=== PATIENT | female | born 1970 | race African-American/Black ===

== ENCOUNTER 2019-02-23 22:16 | Emergency (ER) | payer MEDICAID ==
[~2019-02-23] VITALS: Ht 170.2 cm; Wt 104.0 kg
[2019-02-23] MEDS ORDERED: MORPHINE SULFATE 4 MG/ML CPJ (NOT FOR IM USE) IV ONE (23:30)
[2019-02-23] MEDS ORDERED: ONDANSETRON HCL 4MG/2ML INJ IV ONE (23:30)
[2019-02-23 23:40] LABS: CHLORIDE 106 mEq/L (98-107)
[2019-02-23 23:42] LABS: BASOPHILS % 0.6 % (0.0-2.0); EOSINOPHILS % 3.7 % (0.0-5.0); HEMOGLOBIN. 12.8 g/dL (12.0-16.0); LYMPHOCYTES % 23.2 % (20.0-50.0); MEAN CORPUSCULAR VOLUME 83.2 fL (81.0-99.0); NEUTROPHILS % 62.5 % (40.0-76.0); PLATELET 343 x1000/uL (130-400); RED BLOOD CELL COUNT 4.57 mill/uL (4.2-5.4); RED CELL DISTRIBUTION WIDTH 13.7 % (11.6-14.6)
[2019-02-23 23:43] LABS: INR 0.9; PROTHROMBIN TIME 9.4 sec (9.6-11.0)
[2019-02-23 23:54] LABS: HCG SCREEN NEGATIVE
[2019-02-24] MEDS ORDERED: ASPIRIN 325MG EC TABLET PO ONE (02:00)
[2019-02-24 13:37] VITALS: BP 133/82
[2019-02-24] MEDS ORDERED: LEVETIRACETAM 500MG TABLET PO SCH (15:15)
[2019-02-24] MEDS ORDERED: ASPIRIN 81MG TABLET PO SCH (15:15)
[2019-02-24] MEDS ORDERED: ATORVASTATIN CALCIUM 10MG TABLET PO SCH (21:00)
[2019-02-24] MEDS ORDERED: DEXTROSE 50% WATER 50ML SYRINGE IV PRN (21:45)
[2019-02-25] MEDS ORDERED: INSULIN LISPRO 100 UNITS/ML SUBCUT SCH (08:20)
[2019-02-25] MEDS ORDERED: BLOOD SUGAR DIAGNOSTIC STRIP TEST SCH (09:00)
== END 2019-02-24 15:28 | disposition home or self-care (01) ==
LOC: ER 22:16 → EDBEDREQTM 02-24 02:07 → EDBEDREQDT 02-24 02:07 → EDBEDREQ 02-24 02:07 → ER 02-24 15:28 → CANRESERV 02-24 15:45 → ENRESERV 02-24 15:45 → CANBEDREQ 02-24 15:49
DX: I63.9 Cerebral infarction, unspecified (principal); R07.9 Chest pain, unspecified; E11.9 Type 2 diabetes mellitus without complications; I11.0 Hypertensive heart disease with heart failure; I50.9 Heart failure, unspecified; I25.2 Old myocardial infarction; M79.601 Pain in right arm; F17.210 Nicotine dependence, cigarettes, uncomplicated
CPT/HCPCS: 36415; 70450; 71045; 80053; 83880; 84484; 84703; 85025; 85610; 93005; 96374; 96375; 99291; 99406; J2270; J2405